=== PATIENT | male | born 1940 | race Caucasian/White ===

== ENCOUNTER → 2018-10-31 08:18 | Outpatient (CLI) | payer MEDICARE, OTHER, SELFPAY ==
[2018-07-29 08:47] VITALS: BMI 23.6
[2018-11-02 17:06] LABS: Trileptal-Oxcarbazepine 13 ug/mL (10-35)
== END ==
PROVIDERS: Family Provider Internal Medicine; PCP Internal Medicine; Referring Provider Psychiatry & Neurology Neurology; Visit Provider Psychiatry & Neurology Neurology
DX: G40.909 Epilepsy, unspecified, not intractable, without status epilepticus (principal)
CPT/HCPCS: 36415; 82542

== ENCOUNTER → 2019-04-03 15:55 | Outpatient (CLI) | payer MEDICARE, OTHER, SELFPAY ==
[2018-07-29 08:47] VITALS: BMI 23.6
--- NOTE | 2019-04-03 16:01 | RAD_ITS ---
STUDY: X-RAY - ABDOMEN/PELVIS REASON FOR EXAM: Male, 79 years old. Pain, blood in urine TECHNIQUE: Single AP view of the abdomen / pelvis. COMPARISON: None. FINDINGS: The lung bases are not included in the [id number] of this study. There is an unremarkable bowel gas pattern. There is no demonstrated free abdominal air. The visualized liver, spleen and kidneys are grossly normal in size and morphology. There is a small calcification of the lower right pelvis most likely representing a phlebolith. There are diffuse degenerative changes of the visualized lumbar spine. RAD/Abdomen Single View IMPRESSION: Small calcification of the lower right pelvis most likely representing phlebolith. Degenerative changes of the lumbar spine. Electronically Signed: Erick Kwnog MD at 16:40 EST , Service support ,
== END ==
LOC: HPRAD 15:57
PROVIDERS: PCP Internal Medicine; Referring Provider Internal Medicine; Visit Provider Internal Medicine
DX: R31.9 Hematuria, unspecified (principal)
CPT/HCPCS: 74018

== ENCOUNTER → 2020-07-17 14:49 | Outpatient (CLI) | payer MEDICARE, OTHER, SELFPAY ==
[2020-06-26 13:28] VITALS: BMI 24.2
--- NOTE | 2020-07-17 14:55 | CT_ITS ---
STUDY: CT ABDOMEN AND PELVIS WITH CONTRAST REASON FOR EXAM: Male, 80 years old. 2 day history of hematuria. Elevated white cell count. RADIATION DOSAGE (If Supplied By Facility): CTDIvol = ( 23.23 ) mGy, DLP = ( 1205.60 ) mGycm TECHNIQUE: Transaxial images were obtained from the dome of the diaphragm to the symphysis pubis without oral contrast. IV 100mL Isovue-370 was administered. Sagittal and coronal images were reconstructed. Individualized dose optimization techniques were used for this CT. COMPARISON: None. FINDINGS: Mild degree of dependent bibasilar atelectasis. Calcified left basilar granuloma. Mild degree of pericardial effusion along the left lateral cardiac border. There is a 6.6 mm cyst in the anterior dome of the right lobe of the liver. The gallbladder is contracted. Normal spleen. Normal pancreas. Normal bilateral adrenal glands. There is a 2 cm cyst in the posterior aspect of the right kidney. There is a 4.9 cm x 4.9 cm cyst in the anterior midportion of the left kidney. Normal visualized stomach. Normal small intestine. Normal colon. The appendix is visualized and appears normal. There is diffuse atherosclerotic calcification of the abdominal aorta, without a demonstrated aneurysm. Normal inferior vena cava. Normal retroperitoneum. Diffuse thickening of the bladder wall although the bladder is not completely distended. Marked degree of enlargement of the prostate. The prostate measures 6.9 cm x 6.2 cm. This causes indentation of the bladder base. The prostate is of heterogeneous density with focal areas of possible bleed within the prostate. Normal abdominal wall. There are diffuse degenerative changes of the visualized lumbar spine. CT/Abdomen/Pelvis WITH Contrast IMPRESSION: Marked enlargement of the prostate. The prostate gland is heterogeneous in density with focal areas of increased density within it suggesting possible bleed within the prostate. This causes indentation at the bladder base. Clinical correlation is recommended. Bilateral renal cysts. Electronically Signed: Cullen Sauer MD at 15:27 EDT , Service support ,
[2020-07-17 15:07] LABS: CREATININE FINGERSTICK 1.4 mg/dL (0.70-1.30)
[2020-07-17 15:24] LABS: Hematocrit 47.6 % (40-54); Hemoglobin 16.7 g/dL (13.0-16.5); Mean Corp Hgb Conc 35.1 g/dL (32-36); Mean Corpuscular Hgb 32.6 pg (27.0-32.0); Mean Platelet Vol. 9.8 fl (6.2-12.0); Platelet Count 210 K/mm3 (150-450); RBC Distribution Width CV 12.2 % (11.6-14.6); RBC Distribution Width SD 41.5 fl (35.1-43.9); Red Blood Count 5.12 M/mm3 (4.6-6.2); White Blood Count 5.2 K/mm3 (4.4-11.0)
[2020-07-17 15:36] LABS: Albumin, Serum 3.4 g/dL (3.2-5.0); BUN 15 mg/dL (7-18); BUN/Creat Ratio 14.6 RATIO (10-20); Calcium,Total 8.9 mg/dL (8.5-10.1); Chloride 106 mmol/L (98-107); Creatinine, Serum 1.03 mg/dL (0.70-1.30); EST Glomerular Filtration Rate 74 mL/min (>60); Est Glom Filt Rate - Afr Amer 89 mL/min (>60); Glucose 110 mg/dL (74-106); Phosphorus 3.1 mg/dL (2.5-4.9); Potassium 4.1 mmol/L (3.5-5.1); Sodium Level 141 mmol/L (136-145)
[2020-07-17 17:17] LABS: PSA,Total - Annual Screen 7.04 ng/mL (0.00-4.00)
== END ==
PROVIDERS: PCP Internal Medicine; Referring Provider Nurse Practitioner; Visit Provider Nurse Practitioner
DX: R31.0 Gross hematuria (principal); R10.11 Right upper quadrant pain; R10.9 Unspecified abdominal pain; Z12.5 Encounter for screening for malignant neoplasm of prostate
CPT/HCPCS: 74177; 80069; 84153; 85027; Q9967; G0103

== ENCOUNTER 2020-08-21 05:20 | Day surgery (SDC) | payer MEDICARE, OTHER, SELFPAY ==
[2020-06-26 13:28] VITALS: BMI 24.2
[2020-08-21] VITALS (11 sets, daily range): BP systolic 100–144; BP diastolic 59–86; PULSE 46–79; RESP 14–18; TEMP 35.5–37.2; O2SAT 94–100; BMI 23.4
[2020-08-21] MEDS: Lactated Ringers 1,000 ML 100 ML IV ×2 (06:17→09:42)
[2020-08-21] MEDS: Cefazolin 2 GM in 0.9% Normal Saline 100 ML IV (07:23)
--- NOTE | 2020-08-21 07:30 | PROS_PTH ---
PATIENT: SHANELL ALMONTE [place] [facility] [id number] AGE/SX: 80/M ROOM: RE08/21/[address]: Dr. Zachary Adorno MD : 1940 BED: DIS: 08/22/2020 SPEC #: [id number] RECD: 08/21/20 11:12 STATUS: RAYMON REReji #: [id number] RUDDY: 08/21/20 07:[address]: Zachary Adorno DEPT: SURGICAL PATHOLOGY RECD BY: Izzy Randall ENTERED: 08/21/20 12:16 SP TYPE: TURP OTHR DR: Dr. Chayito Da Silva, DO Tissues: Prostate, NOS Procedures: Surgery Specimen Level IV HEADER OPERATION: Cysto, TUR prostate, [facility] PRE-OP DIAGNOSIS: BPH with lower urinary tract symptoms TISSUE SUBMITTED: Prostate chips MICROSCOPIC DIAGNOSIS Prostate, transurethral resection: Benign nodular hyperplasia, glandular and stromal types. Chronic inflammation. Urothelium with mild chronic inflammation. AM:radha 08/22/2020 MICROSCOPIC DESCRIPTION Slides are reviewed. GROSS DESCRIPTION Received is one container labeled with the patient's name and designated prostate tissue. The specimen consists of multiple irregular fragments of pink-barillas, rubbery, soft tissue that in aggregate weigh 38.9 gm and measure in aggregate 10 x 8 x 3 cm. Bedspread Seamer tissue is submitted in ten cassettes. / SJ:radha 08/21/20 TC:3 CPT: 51200
[2020-08-21] MEDS: Lubricating Jelly 60 GM Tube 30 GM TOPICAL (07:48)
--- NOTE | 2020-08-21 09:29 | PCM.DC ---
Discharge Instructions Diet Discharge Diet: No restrictions Activity Discharge Activity: Return to Normal Activity and May Not Drive (while taking narcotic pain medications.) Dressing / Incision Call your doctor if you observe: Fever of 101 or Higher Follow Up Care Please Follow Up With: Zachary Adorno MD When: Call [phone] for an appointment Test Results: Test results from this visit will be discussed in further detail at your follow-up appointment, if applicable. Discharge Plan Admission Primary Reason for Your Visit: turp Attending Provider: Zachary Adorno Primary Care Provider: Chayito Da Silva Instructions Patient Instructions: Transurethral Resection of the Prostate (TURP): Home Recovery Discharge Orders/Prescriptions Prescriptions: New ciprofloxacin HCl [Cipro] 500 mg tablet 500 mg PO BID Qty: 14 RF: 0 Continued cholecalciferol (vitamin D3) 2,000 unit tablet 2,000 unit tablet 1,000 unit PO QDAY RF: 0 glucosamine-chondroitin 900 mg tablet 900 mg PO DAILY RF: 0 carvedilol 3.125 mg tablet 3.125 mg PO BID Qty: 180 RF: 4 losartan 25 mg tablet 25 mg PO QHS Qty: 90 RF: 4 omega-3 fatty acids-fish oil 1 EACH capsule 1 ea PO DAILY RF: 0 calcium citrate-vitamin D3 1 EACH tablet 2,925 mg PO DAILY RF: 0 sennosides 1 TABLET tablet 1 tab PO DAILY PRN PRN (Reason: Constipation) RF: 0 oxcarbazepine 300 mg tablet 300 mg PO QHS RF: 0 donepezil 5 mg tablet 10 mg PO QHS RF: 0 atorvastatin 20 mg tablet 20 mg PO QHS Qty: 90 RF: 3 Held aspirin 81 MG tablet,chewable 81 mg PO DAILY@0800 RF: 0 Hold Instructions: Resume on 09/04/20. Discontinued tamsulosin [Flomax] 0.4 mg Capsule 0.4 mg PO QHS RF: 0 dutasteride 0.5 mg Capsule 0.5 mg PO DAILY RF: 0 Referrals / Follow Up: Zachary Adorno MD [STAFF PHYSICIAN] - Chayito Da Silva DO [Primary Care Provider] -
--- NOTE | 2020-08-21 09:30 | HP.PCM_ITS ---
HPI - General HPI Narrative Patient presents For transurethral resection of the prostate he was found to have significant obstruction of the prostate on cystoscopy. [facility] Medical History (Updated 08/21/20 @ 09:[address] Zachary Adorno MD) Arthritis BPH (benign prostatic hyperplasia) Cardiology follow-up encounter Chronic cardiac arrhythmia Chronic obstructive pulmonary disease COPD not affecting current episode of care Dementia Dilated cardiomyopathy Dyslipidemia Essential hypertension Former smoker Heart failure High cholesterol History of edema History of stress test HTN (hypertension) Hx of mitral valve prolapse Mitral valve disorder Nonrheumatic mitral (valve) insufficiency Prostate disease Restless legs Shortness of breath on exertion Sinus bradycardia Sleep apnea Syncope TIA on medication Tricuspid valve insufficiency, non-rheumatic Wears partial dentures Home Medications aspirin 81 mg PO DAILY@0800 05/08/13 [History Last Taken 08/16/20] calcium citrate-vitamin D3 2,925 mg PO DAILY 05/08/13 [History Last Taken 08/20/20] omega-3 fatty acids-fish oil 1 ea PO DAILY 05/08/13 [History Last Taken 08/20/20] sennosides 1 tab PO DAILY PRN PRN 10/16/13 [History Last Taken 10/15/13] cholecalciferol (vitamin D3) 50 mcg (2,000 unit) tablet 1,000 unit PO QDAY 06/22/17 [History Last Taken Unknown] atorvastatin 20 mg tablet 20 mg PO QHS #90 tab 05/29/19 [Rx Last Taken 08/20/20] oxcarbazepine 300 mg tablet 300 mg PO QHS tab 06/28/19 [History Last Taken 08/20/20] antiarthritic combination no.2 900 mg tablet 900 mg PO DAILY tablet 06/26/20 [History Last Taken 08/21/20] carvedilol 3.125 mg tablet 3.125 mg PO BID #180 tab 06/26/20 [Rx Last Taken 08/21/20] losartan 25 mg tablet 25 mg PO QHS #90 tab 06/26/20 [Rx Last Taken 08/20/20] ciprofloxacin HCl [Cipro] 500 mg PO BID #14 tab 08/21/20 [Rx Last Taken Unknown] donepezil 10 mg PO QHS 08/21/20 [History Last Taken 08/20/20] Allergy/AdvReac Type Severity Reaction Status Date / Time lisinopril Allergy Mild Persistent Verified 08/14/20 09:59 Cough Family History Mother CAD (coronary artery disease) CHF (congestive heart failure) Father No problems noted. Sister Arthritis Surgical History (Updated 08/14/20 @ 10:18 by Jeanine Stevenson) History of cardiac catheterization History of prostate biopsy History of transurethral resection of prostate Hx of colonoscopy Social History (Updated 06/26/20 @ 14:[address] Gamaliel Brasher MD) Smoking Status: Former smoker alcohol intake: never substance use type: does not use caffeine: Yes Type: coffee Number of servings: 1 what type of physical activity do you participate in: none seatbelt use: always Vital Signs Vital Signs Vital Signs: 08/21/20 06:02 Temperature 97.1 F L Temperature Source Temporal Pulse Rate 53 L Respiratory Rate 18 Respiratory Pattern Normal Blood Pressure 111/71 Blood Pressure Mean 84 Blood Pressure Source Monitor Blood Pressure Position Semi-Fowlers Blood Pressure Location Left Arm Pulse Ox 95 Oxygen Delivery Method Room Air Weight Weight: 72 kg Body Mass Index (BMI) 23.4 Physical Exam Const alert and oriented x3 General Appearance: cooperative HEENT normocephalic, head/scalp atraumatic, EAC's normal and TM's normal bilaterally Eyes PERRL and EOMs intact bilaterally Pupil: sluggish Neck no lymphadenopathy, supple and no JVD General: trachea midline Lymph Lymphatic: no lymphadenopathy noted, lymphedema and lymphadenopathy Resp normal respiratory effort, normal air movement and clear to auscultation bilaterally Cardio regular rate, regular rhythm and peripheral pulses 2+ throughout GI soft to palpation, non-tender and non-distended Extremity normal capillary refill and no clubbing, cyanosis or edema General Extremity: no tenderness to palpation of joints or extremities Skin no rashes or lesions noted General Skin Exam: turgor normal Lesions: no lesions Rashes: no rashes Neuro CN's II-XII intact bilaterally Speech: speech normal Motor Exam: strength 5/5 throughout; Negative for general weakness Psych thought process normal, cooperative and affect normal Appearance: appropriate Results Lab / Micro Data Micro: Microbiology 08/20/20 08:30 SARS-CoV-2 Antigen (Rapid) - Final Interface Orders Assessment & Plan Assessment/Plan (1) BPH with obstruction/lower urinary tract symptoms: PLAN: Plan to proceed with a transurethral resection of the prostate
--- NOTE | 2020-08-21 09:31 | OP.PCM_ITS ---
Report of Operation Date of Procedure: 08/21/20 Pre-Operative Diagnosis: BPH with obstruction Post-Operative Diagnosis: Same Surgery/Procedure Performed:: Transurethral section prostate Description of Surgical Findings:: In the preoperative setting I discussed with the patient how the surgery would be done with expect afterwards. We discussed how a prostate resection is done and we discussed the risk of the surgery including, bleeding, infection, retrograde ejaculation, changes with ejaculation or intercourse,. We discussed the possibility that the resection of the prostate may not alleviate his urinary symptoms. We discussed the small risk of developing scar tissue along the urethral channel and strictures. We also discussed the chance of the prostate could grow back and he may need further surgery or treatment in the future for prostate problems. Patient was taken back to the operating room, timeout procedure was performed, he was identified and marked and placed on the operating room table. He underwent general anesthesia. He was placed in dorsolithotomy position. Penis and testicles were prepped and draped in usual sterile fashion. Went into the bladder using the visual obturator with a resectoscope. Once inside the bladder identified the right and left ureteral orifice. I then identified the prostate and the anatomy of the prostate. I marked out the area of the sphincter and the verumontanum was identified. I then proceeded with the prostate resection first resected the median lobe. And then resected the right lobe of the prostate. Then to resect the left lobe of the prostate. I then resected the apical tissue of the prostate. Made sure that there was no injury to the sphincter or the verumontanum was still intact. At the end of the resection all the chips were Ellik out of the bladder. I then identified the left and right ureteral orifice and these were confirmed to be in good position and effluxing and not injured. The resectoscope was removed, a 22 Icelandic catheter was placed into the bladder on continuous irrigation. And the urine was fairly light pink color and draining normally. He was taken back to the PACU in good condition. Surgeon: Zachary Adorno Type of Anesthesia: General Drains: 24 Icelandic three-way catheter Admit VTE Documentation VTE Present on Admission: Yes VTE Mechan Device Prophylaxis: SCD's
--- NOTE | 2020-08-21 10:41 | NURSING ---
bed exit on, pt sleeping, barney bag with pink urine, cbi running
[2020-08-21] MEDS: Lactated Ringers 1,000 ML 125 ML IV ×2 (14:13→22:31)
[2020-08-21] MEDS: Ciprofloxacin 400 MG/200 ML BAG 200 MG IV (15:45)
[2020-08-21] MEDS: Carvedilol 3.125 MG TABLET PO (21:26)
[2020-08-21] MEDS: Losartan Potassium 25 MG Tablet PO (21:26)
[2020-08-21] MEDS: OXcarbazepine 300 MG Tablet PO (21:26)
[2020-08-21] MEDS: Atorvastatin Calcium 20 MG Tablet PO (21:26)
[2020-08-21] MEDS: Donepezil HCl 10 MG Tablet PO (21:26)
[2020-08-22 02:00] VITALS: BP 101/63; PULSE 73; RESP 18; TEMP 36.6; O2SAT 95
[2020-08-22] MEDS: HYDROcodone Bitartrate/Apap 5/325 Tablet PO (02:05)
[2020-08-22] MEDS: Ciprofloxacin 400 MG/200 ML BAG 200 MG IV (03:46)
[2020-08-22 06:09] VITALS: BP 90/55; PULSE 60; RESP 16; TEMP 36.7; O2SAT 96
--- NOTE | 2020-08-22 06:14 | PCM.PN.BLA ---
Progress Note Plan to DC Vicente for voiding trial home after void
[2020-08-22] MEDS: Calcium Carb/Vitamin D 1 TABLET Tablet PO (07:56)
[2020-08-22] MEDS: Cholecalciferol (VIT D3) 25 MCG TABLET (1,000 UNITS) PO (07:57)
[2020-08-22] MEDS: Lactated Ringers 1,000 ML 125 ML IV (07:57)
[2020-08-22 07:59] VITALS: BP 101/53; PULSE 58; RESP 16; TEMP 37; O2SAT 96
[2020-08-22 11:50] VITALS: BP 103/63; PULSE 76; RESP 18; TEMP 36.8; O2SAT 92
[2020-08-22 12:49] VITALS: BP 119/67; PULSE 76; RESP 18; TEMP 37.1; O2SAT 98
== END 2020-08-22 12:53 ==
LOC: SDC 05:20 → AC 05:20 → MS3 08-22 08:47
PROVIDERS: PCP Internal Medicine; Referring Provider Urology; Visit Provider Urology
PROC: (CPT 52601; principal; 2020-08-21 07:20)
DX: N40.1 Benign prostatic hyperplasia with lower urinary tract symptoms (principal); N13.8 Other obstructive and reflux uropathy; J44.9 Chronic obstructive pulmonary disease, unspecified; I42.0 Dilated cardiomyopathy; F03.90 Unspecified dementia, unspecified severity, without behavioral disturbance, psychotic disturbance, mood disturbance, and anxiety; E78.5 Hyperlipidemia, unspecified; I11.0 Hypertensive heart disease with heart failure; I50.9 Heart failure, unspecified; R31.0 Gross hematuria; G47.30 Sleep apnea, unspecified; G25.81 Restless legs syndrome; Z79.899 Other long term (current) drug therapy; Z79.82 Long term (current) use of aspirin; Z87.891 Personal history of nicotine dependence
CPT/HCPCS: 00914; 52601; 87426; 88305; 99406; C9803; J7040; J7120; J0744; J2405